=== PATIENT | male | born 1975 | race Caucasian/White ===

== ENCOUNTER 2021-04-28 18:50 | Emergency (ER) | payer OTHER ==
[~2021-04-28] VITALS: Ht 170.2 cm; Wt 64.9 kg
[2021-04-28 19:10] VITALS: BP 113/90
--- NOTE | 2021-04-28 19:13 | NUR ---
TO [facility] A/W BED AMBULATORY
--- NOTE | 2021-04-28 19:47 | NUR ---
PT TAKEN TO BED 6
--- NOTE | 2021-04-28 19:58 | NUR ---
Kiki teixeira in ED - 04/28/21 at [address] Adhikari examining patient.
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
--- NOTE | 2021-04-28 20:56 | NUR ---
Dr. Adhikari examining patient.
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
[2021-04-28 21:49] VITALS: BP 113/90
--- NOTE | 2021-04-28 21:49 | NUR ---
PT. LEFT WITHOUT D/C PAPERS.
== END 2021-04-28 21:49 | disposition home or self-care (01) ==
LOC: MED 18:50
DX: T73.0XXA Starvation, initial encounter (principal); X58.XXXA Exposure to other specified factors, initial encounter
CPT/HCPCS: 99281